=== PATIENT | female | born 1960 | race Caucasian/White ===

== ENCOUNTER 2025-04-11 10:02 | Inpatient (IN) | payer MEDICARE, SELFPAY ==
[2025-04-11] VITALS (7 sets, daily range): BP systolic 123–165; BP diastolic 68–95; PULSE 64–95; RESP 14–18; TEMP 36.6–36.8; O2SAT 97–100; BMI 26.9
--- NOTE | 2025-04-11 10:18 | EX.ED.SAOD ---
HPI History of Present Illness Chief Complaint: Substance Abuse Informant: patient and spouse/S.O. Onset/Context/Timing Onset: - (Years.) Context: Gradual Onset Timing: Continuous Narrative Narrative: 65-year-old female history of atrial flutter on Eliquis. States she has been on hydrocodone 5 times a day for 12 years due to her chronic cough. States that she would like to get off the medication. Is requesting detox. Says when she does not take the medication she goes to withdrawal symptoms. Last dose of the medication was at midnight last night. No prior detox. Prior similar symptoms: Yes Recent Illness/Hospitalization: No [facility] Medical History (Updated 04/11/25 @ 11:11 by Kita Antoine) Atrial flutter HTN (hypertension) Home Medications ?Medication ?Instructions ?Recorded ?Last Taken ?Type apixaban 5 mg tablet (Eliquis) 5 mg PO BID 04/11/25 Unknown History hydrochlorothiazide 25 mg tablet 25 mg PO DAILY 04/11/25 Unknown History metoprolol succinate 50 mg 50 mg PO .morning 04/11/25 Unknown History tablet,extended release 24 hr metoprolol tartrate 25 mg tablet 25 mg PO .evening 04/11/25 Unknown History Allergy/AdvReac Type Severity Reaction Status Date / Time esomeprazole (From Nexium) Allergy Intermediate Itching Verified 04/11/25 10:07 Social History Smoking Status: Never smoker ROS ROS ED ROS Narrative No recent illness. Constitutional Constitutional ED: Denies chills or fever(s) Eyes Eyes: Denies blurry vision ENT ENT ED: Denies ear pain Cardiovascular Cardiovascular: Denies chest pain Respiratory/Chest Respiratory/Chest: Denies cough Gastrointestinal Gastrointestinal: Denies abdominal pain Genitourinary Genitourinary ED: Denies dysuria Musculoskeletal Musculoskeletal: Denies arthralgias Neurologic Neurologic: Denies headache(s) Psychiatric Psychiatric: Denies anxiety or depression Endocrine Endocrinology: Denies cold intolerance Hematologic/Lymphatic Hematologic/Lymphatic: Denies easy bleeding, easy bruising or lymphadenopathy Allergic/Immunologic Allergic/Immunologic ED: Denies mouth swelling, tongue swelling or urticaria EXAM Physical Exam Narrative Exam Narrative: Well-appearing 65-year-old female. Vital signs are stable afebrile. No acute distress. at bedside. H EENT exam pupils round react light. Moist mucous membranes. No trauma. Neck nontender. No lymphadenopathy. Lungs clear to auscultation bilaterally. Heart regular rhythm rate about 80 no murmur. Chest wall and ribs nontender. Abdomen soft nontender. Moving all 4 extremities. Normal strength. Normal range of motion. Nontender no edema. Back nontender. Neurologically she is awake alert. Answering questions and following commands. Very benign exam. Const Vital Signs: 04/11/25 10:02 04/11/25 11:09 04/11/25 11:18 Temperature 97.8 F 98.2 F Temperature Source Temporal Pulse Rate 82 66 68 Respiratory Rate 16 18 18 Blood Pressure 165/88 H 151/75 H 139/71 H Blood Pressure Mean 113 100 93 Pulse Ox 100 98 99 Oxygen Delivery Method Room Air Room Air Positive well nourished and well developed; Negative for cachectic, contractures or unkempt General Appearance ED: well developed and NAD; Negative for unkempt, cachectic, contractures or pallor Nutritional Appearance: Negative for cachectic HEENT Reports moist mucous membranes atraumatic Eyes PERRL and EOMs intact bilaterally Neck no lymphadenopathy, supple and no JVD Lymph Lymphatic: no lymphadenopathy noted Chest Wall inspection of chest normal and palpation of chest normal Resp normal respiratory effort and clear to auscultation bilaterally Cardio regular rate, regular rhythm, S1 normal heart sound, S2 normal heart sound and no murmurs Rate: Negative for bradycardia or tachycardic Rhythm: Negative for abnormal rhythm GI soft to palpation, non-tender, non-distended and no masses Back/Spine no CVA tenderness General Back: Negative for CVA tenderness Cervical Spine: Negative for cervical spine tenderness Thoracic Spine / Upper Back: Negative for thoracic spinal tenderness Neuro oriented x3 and CN's II-XII intact bilaterally Sensorium / Orientation: alert, oriented to person, oriented to place and oriented to time Speech: speech normal Motor Exam: strength 5/5 throughout Psych mental status grossly normal and thought process normal Appearance: Negative for unkempt Attitude: No belligerent, No agitated, No aggressive and No hostile Skin General Skin Exam: Negative for jaundice or pallor Lesions: no lesions Rashes: no rashes MDM MDM MDM Narrative Medical decision making narrative: 65-year-old female has been using 5 hydrocodone a day for 12 years is requesting inpatient detox. Has a benign exam. Screening labs will be obtained and I will speak to the hospitalist about admission. Repeat exam patient is resting comfortably in 50 3 AM. She requested and received 1/2 mg of Ativan for anxiety. Her lab work was unremarkable. Hospitalist is on page for admission for detox. History & Record Review Discussion w/independent historian: Patient and Family Additional record(s) reviewed:: No prior records Lab Data Attestation: I reviewed the patient's lab results. Lab results narrative: CBC unremarkable. White count 8. H&H 15 and 43. Platelets 267. Chemistries show a gap 14. BUN/creatinine is 17 and 0.6. Glucose 125. Liver enzymes are unremarkable. Tox screen positive for opiates. Alcohol negative. Labs: Laboratory Results - last 24 hr 04/11/25 10:40 WBC 8.9 RBC 4.94 Hgb 15.3 H Hct 43.7 MCV 88.5 MCH 31.0 MCHC 35.0 RDW Std Deviation 40.9 RDW Coeff of Amadou 12.4 Plt Count 267 MPV 8.8 Immature Gran % (Auto) 0.300 Neut % (Auto) 62.9 Lymph % (Auto) 30.5 [place] % (Auto) 5.6 Eos % (Auto) 0.4 Baso % (Auto) 0.3 Absolute Neuts (auto) 5.6 Absolute Lymphs (auto) 2.72 Nucleated RBC % 0 Sodium 138 Potassium 4.3 Chloride 101 Carbon Dioxide 23.4 Anion Gap 14 BUN 17 Creatinine 0.67 L Estim Creat Clear Calc 66.04 Est GFR (MDRD) Non-Af 96 BUN/Creatinine Ratio 24.8 H Glucose 125 H Calcium 9.9 Total Bilirubin 0.74 AST 19 ALT 13 Alkaline Phosphatase 59 Total Protein 7.4 Albumin 4.5 Globulin 2.9 Albumin/Globulin Ratio 1.6 Urine Opiates Screen PRESUMPTIVE POSITIVE U Buprenorphine Qual NEGATIVE Ur Oxycodone Screen NEGATIVE Urine Methadone Screen NEGATIVE Urine Fentanyl Screen NEGATIVE Ur Barbiturates Screen NEGATIVE Ur Phencyclidine Scrn NEGATIVE Ur Amphetamines Screen NEGATIVE U Benzodiazepines Scrn NEGATIVE Urine Cocaine Screen NEGATIVE U Cannabinoids Screen NEGATIVE Ethyl Alcohol < 10.1 Discharge Plan Triage Chief Complaint: Substance Abuse ED Provider: Landry Hector Dx/Rx/DC Orders Prescriptions: No Action metoprolol succinate 50 mg tablet extended release 24 hr 50 mg PO .morning Eliquis 5 mg tablet 5 mg PO BID metoprolol tartrate 25 mg tablet 25 mg PO .evening hydrochlorothiazide 25 mg tablet 25 mg PO DAILY Primary Care Provider: UCHE TADEO MD Referrals: Care Physician,No Primary [Non-Staff] - Print Language: Thai
[2025-04-11 10:48] LABS: Hematocrit 43.7 % (37-47); Hemoglobin 15.3 g/dL (12.0-15.0); Immature Granulocytes Count 0.030 X10^3/uL (0.0-0.0); Mean Corp Hgb Conc 35.0 g/dL (32-36); Mean Corpuscular Volume 88.5 fL (81-99); Mean Platelet Vol. 8.8 fl (6.2-12.0); NRBC Flagged by Analyzer 0 % (0-5); Platelet Count 267 K/mm3 (150-450); RBC Distribution Width CV 12.4 % (11.6-14.6); RBC Distribution Width SD 40.9 fl (35.1-43.9); Red Blood Count 4.94 M/mm3 (4.2-5.4); White Blood Count 8.9 K/mm3 (4.4-11.0)
[2025-04-11 11:09] LABS: AST(SGOT) 19 U/L (<=31); Alanine Aminotransfer ALT/SGPT 13 U/L (<=34); Albumin, Serum 4.5 g/dL (3.4-4.8); Alkaline Phosphatase 59 U/L (35-104); Anion Gap 14 (5-15); BUN 17 mg/dL (4-19); BUN/Creat Ratio 24.8 RATIO (10-20); Calcium,Total 9.9 mg/dL (7.6-11.0); Carbon Dioxide 23.4 mmol/L (21.0-32.0); Chloride 101 mmol/L (98-108); Estimated Creatinine Clearance 66.04 ml/min (50-250); Globulin 2.9 g/dL (2.2-4.2); Glucose 125 mg/dL (70-99); Potassium 4.3 mmol/L (3.3-5.1)
[2025-04-11 11:12] LABS: Barbiturate Urine NEGATIVE (< 200 ng/mL); Benzodiazepine Urine NEGATIVE (< 200 ng/mL); PCP Urine NEGATIVE (< 25 ng/mL); THC Urine NEGATIVE (< 50 ng/mL)
[2025-04-11 11:36] LABS: Alcohol, Blood (Medical)-Serum < 10.1 mg/dL (<=10.0)
--- NOTE | 2025-04-11 11:55 | PCM.HP.STD ---
HPI - General General Date of Admission: 04/11/25 Date of Service: 04/11/25 Chief Complaint: acute opioid detox HPI Narrative LIBBY BIANCHI, is a 65 F with a PMH as outlined who presents via the ED on 04/11/2025 for acute opioid detox. SHe has been on hydrocodone 10mg five times daily for 12 years for chronic cough. She says she has been taking more than usual recently and now wants help to detox from the medication. She says her body has gotten used to the hydrocodone over the years and she has been taking her pills when she needs. She recently spent the day with her granddaughters and felt like her brain was very foggy on account of the hydrocodone and so wants help to get off of it. She denied any shakes, tremors, palpitations, nausea, or any other withdrawal symptoms. She did admit to anxiety and restless legs. Review of systems is otherwise negative. Vitals in the ED were BP of 139/71, CO of 68, RR of 18 and temp of 98.2F. She was saturating at 99% on room air. CBC showed Hb of 15.3, wbc of 8.9, platelets of 267. Chemistry was unremarkable and serum alcohol level was <10.1. Urine tox screen is negative. She is being admitted to be managed for acute opioid withdrawal with desire for detox. [facility] Medical History (Updated 04/11/25 @ 15:[address] Swati Sears MD) Atrial flutter HTN (hypertension) Home Medications ?Medication ?Instructions ?Recorded ?Last Taken ?Type apixaban 5 mg tablet (Eliquis) 5 mg PO BID 04/11/25 Unknown History hydrochlorothiazide 25 mg tablet 25 mg PO DAILY 04/11/25 Unknown History metoprolol succinate 25 mg capsule 25 mg PO DAILY BP 04/11/25 Unknown History sprinkle, ext. release 24 hr metoprolol succinate 50 mg 50 mg PO .morning 04/11/25 Unknown History tablet,extended release 24 hr metoprolol tartrate 25 mg tablet 25 mg PO .evening bp 04/11/25 Unknown History Allergy/AdvReac Type Severity Reaction Status Date / Time esomeprazole (From Nexium) Allergy Intermediate Itching Verified 04/11/25 10:07 Social History Smoking Status: Never smoker ROS Constitutional Constitutional: Reports fatigue; Denies anorexia, chills, fever(s), malaise or weakness Eyes Eyes: Denies change in vision ENT HEENT: Denies dysphagia or headache(s) Cardiovascular Cardiovascular: Denies chest pain, dyspnea on exertion, edema, lightheadedness, orthopnea, palpitations, paroxysmal nocturnal dyspnea, rapid heart rate or syncope Respiratory/Chest Respiratory/Chest: Reports cough; Denies dyspnea, productive cough, shortness of breath at rest, shortness of breath with exertion or wheezing Gastrointestinal Gastrointestinal: Denies abdominal pain, constipation, diarrhea, dyspepsia, nausea or vomiting Genitourinary Genitourinary: Denies dysuria Neurologic Neurologic: Denies confusion, dizziness, focal weakness or headache(s) Psychiatric Psychiatric: Denies anxiety or depression Vital Signs Vital Signs Vital Signs: 04/11/25 10:02 04/11/25 11:09 04/11/25 11:18 Temperature 97.8 F 98.2 F Temperature Source Temporal Pulse Rate 82 66 68 Respiratory Rate 16 18 18 Blood Pressure 165/88 H 151/75 H 139/71 H Blood Pressure Mean 113 100 93 Pulse Ox 100 98 99 Oxygen Delivery Method Room Air Room Air Weight Weight: 157 lb Body Mass Index (BMI) 26.9 Physical Exam Const alert, oriented x3 and no apparent distress Constitutional Narrative: anxious General Appearance: cooperative HEENT normocephalic, head/scalp atraumatic, hearing grossly normal bilaterally, moist oral mucous membranes and oropharynx normal Mouth: oral and palatal mucosa normal Eyes EOMs intact bilaterally and conjunctivae normal Neck no lymphadenopathy and supple Resp normal respiratory effort and no retractions Cardio regular rate, regular rhythm, S1 normal heart sound, S2 normal heart sound and no murmurs GI normal to inspection, nondistended, normoactive bowel sounds, soft to palpation and non-tender Extremity normal to inspection, full ROM and no clubbing, cyanosis or edema Neuro oriented x3, moves all extremities and no focal motor deficits Sensorium / Orientation: awake and alert Motor Exam: strength 5/5 throughout Psych affect normal Results Lab / Micro Data 04/11/25 10:40 04/11/25 10:40 Labs: Laboratory Results - last 24 hr 04/11/25 10:40: WBC 8.9, RBC 4.94, Hgb 15.3 H, Hct 43.7, MCV 88.5, MCH 31.0, MCHC 35.0, RDW Std Deviation 40.9, RDW Coeff of Amadou 12.4, Plt Count 267, MPV 8.8, Immature Gran % (Auto) 0.300, Neut % (Auto) 62.9, Lymph % (Auto) 30.5, [place] % (Auto) 5.6, Eos % (Auto) 0.4, Baso % (Auto) 0.3, Absolute Neuts (auto) 5.6, Absolute Lymphs (auto) 2.72, Nucleated RBC % 0, Sodium 138, Potassium 4.3, Chloride 101, Carbon Dioxide 23.4, Anion Gap 14, BUN 17, Creatinine 0.67 L, Estim Creat Clear Calc 66.04, Est GFR (MDRD) Non-Af 96, BUN/Creatinine Ratio 24.8 H, Glucose 125 H, Calcium 9.9, Total Bilirubin 0.74, AST 19, ALT 13, Alkaline Phosphatase 59, Total Protein 7.4, Albumin 4.5, Globulin 2.9, Albumin/Globulin Ratio 1.6, Urine Opiates Screen PRESUMPTIVE POSITIVE, U Buprenorphine Qual NEGATIVE, Ur Oxycodone Screen NEGATIVE, Urine Methadone Screen NEGATIVE, Urine Fentanyl Screen NEGATIVE, Ur Barbiturates Screen NEGATIVE, Ur Phencyclidine Scrn NEGATIVE, Ur Amphetamines Screen NEGATIVE, U Benzodiazepines Scrn NEGATIVE, Urine Cocaine Screen NEGATIVE, U Cannabinoids Screen NEGATIVE, Ethyl Alcohol < 10.1 Assessment & Plan Assessment/Plan (1) Admitted to substance misuse detoxification center: (2) Opioid abuse: PLAN: Plan #Acute opioid use disorder with risk of withdrawal Admit to [facility]. Patient has been on hydrocodone for 12 years for chronic cough. He was initially started on the hydrocodone with cough syrup but says that was making her sleepy so she was switched to the strictly hydrocodone. She now takes 10 mg 5 times daily and has been taking increased doses as her body has gotten used to it. She therefore comes in requesting help for detox. She complains of restless legs and nerves and also has some anxiety. Started on opioid withdrawal protocol with buprenorphine. Adjunctive meds for symptomatic relief. Monitor COWS score. #Hypertension: On hydrochlorothiazide and metoprolol. #History of atrial flutter: On metoprolol and Eliquis DVT prophylaxis: Not indicated as patient already on Eliquis CODE STATUS: full code Patient counseled extensively about different types of CODE STATUS including full code, DNR CCA and DNR CCA. Patient elects to be full code. Total icaj-mr-pjso time 16 minutes. Charges/Coding Visit Charges Inpatient E&M: 77990 Init Hosp L3 Procedures Hospitalists Procedures: 19814 Advncd Care Plan 30 Min
[2025-04-11] MEDS: Metoprolol(XL)Succ 50 MG Tablet PO (21:04)
[2025-04-11] MEDS: APIXABAN 5 MG TABLET PO (21:04)
[2025-04-12 06:33] VITALS: BP 123/77; PULSE 62; RESP 16; TEMP 36.6; O2SAT 99
[2025-04-12 09:04] VITALS: BP 149/77; PULSE 72; RESP 18; TEMP 36.8; O2SAT 98
[2025-04-12 09:07] VITALS: PULSE 72
[2025-04-12] MEDS: APIXABAN 5 MG TABLET PO ×2 (09:07→21:06)
[2025-04-12] MEDS: Metoprolol(XL)Succ 25 MG Tablet PO (09:07)
--- NOTE | 2025-04-12 09:44 | NURSING ---
Call placed to Jim on behalf of patient to request Stevia (sweetener). Left message and call back #.
--- NOTE | 2025-04-12 10:04 | NURSING ---
Call received from Jim regarding sweetener. He will bring some in.
--- NOTE | 2025-04-12 10:30 | PN_ITS ---
Subjective Subjective Patient seen and examined. She says she is feeling better today and says her restless legs and nerves are much better. Review of systems is otherwise negative. Objective Data Objective Data Vital Signs: Vital Signs Temp Pulse Resp BP Pulse Ox O2 Del Method 98.2 F 72 18 149/77 H 98 Room Air 04/12/25 09:04 04/12/25 09:07 04/12/25 09:04 04/12/25 09:04 04/12/25 09:04 04/12/25 09:04 Oxygen Delivery Method Room Air Weight: 156 lb 15.859 oz Body Mass Index (BMI) 26.9 Intake & Output: Intake and Output for Last 24 Hours 04/10/25 04/11/25 04/12/25 23:59 23:59 23:59 Intake Total 500 / 500 Balance 500 / 500 Lab / Micro Data 04/11/25 10:40 04/11/25 10:40 Labs: Laboratory Results - last 24 hr 04/11/25 10:40: WBC 8.9, RBC 4.94, Hgb 15.3 H, Hct 43.7, MCV 88.5, MCH 31.0, MCHC 35.0, RDW Std Deviation 40.9, RDW Coeff of Amadou 12.4, Plt Count 267, MPV 8.8, Immature Gran % (Auto) 0.300, Neut % (Auto) 62.9, Lymph % (Auto) 30.5, [place] % (Auto) 5.6, Eos % (Auto) 0.4, Baso % (Auto) 0.3, Absolute Neuts (auto) 5.6, Absolute Lymphs (auto) 2.72, Nucleated RBC % 0, Sodium 138, Potassium 4.3, Chloride 101, Carbon Dioxide 23.4, Anion Gap 14, BUN 17, Creatinine 0.67 L, Estim Creat Clear Calc 66.04, Est GFR (MDRD) Non-Af 96, BUN/Creatinine Ratio 24.8 H, Glucose 125 H, Calcium 9.9, Total Bilirubin 0.74, AST 19, ALT 13, Alkaline Phosphatase 59, Total Protein 7.4, Albumin 4.5, Globulin 2.9, Albumin/Globulin Ratio 1.6, Urine Opiates Screen PRESUMPTIVE POSITIVE, U Buprenorphine Qual NEGATIVE, Ur Oxycodone Screen NEGATIVE, Urine Methadone Screen NEGATIVE, Urine Fentanyl Screen NEGATIVE, Ur Barbiturates Screen NEGATIVE, Ur Phencyclidine Scrn NEGATIVE, Ur Amphetamines Screen NEGATIVE, U Benzodiazepines Scrn NEGATIVE, Urine Cocaine Screen NEGATIVE, U Cannabinoids Screen NEGATIVE, Ethyl Alcohol < 10.1 Physical Exam Const alert, oriented x3 and no apparent distress Constitutional Narrative: anxious General Appearance: cooperative HEENT normocephalic, head/scalp atraumatic, hearing grossly normal bilaterally, moist oral mucous membranes and oropharynx normal Eyes EOMs intact bilaterally and conjunctivae normal Neck no lymphadenopathy and supple Resp normal respiratory effort, normal air movement and no retractions Cardio regular rate, regular rhythm, S1 normal heart sound, S2 normal heart sound and no murmurs GI normal to inspection, nondistended, normoactive bowel sounds, soft to palpation and non-tender Extremity normal to inspection, full ROM, normal capillary refill and no clubbing, cyanosis or edema General Extremity: no tenderness to palpation of joints or extremities Skin General Skin Exam: no breakdown Neuro oriented x3, CN's II-XII intact bilaterally, moves all extremities and no focal motor deficits Sensorium / Orientation: awake and alert Motor Exam: strength 5/5 throughout and general weakness Psych thought process normal, cooperative and affect normal Appearance: appropriate Assessment & Plan Assessment/Plan (1) Admitted to substance misuse detoxification center: (2) Opioid abuse: PLAN: Plan #Acute opioid use disorder with risk of withdrawal * Patient has been on hydrocodone for 12 years for chronic cough. * She was initially started on the hydrocodone with cough syrup but says that was making her sleepy so she was switched to the strictly hydrocodone. * She now takes 10 mg 5 times daily and has been taking increased doses as her body has gotten used to it. * She therefore comes in requesting help for detox. She complains of restless legs and nerves and also has some anxiety. * on opioid withdrawal protocol with buprenorphine * adjunctive meds for symptomatic relief. Monitor COWS score. * #Hypertension: On hydrochlorothiazide and metoprolol. #History of atrial flutter: On metoprolol and Eliquis DVT prophylaxis: Not indicated as patient already on Eliquis CODE STATUS: full code * Charges/Coding Visit Charges Inpatient E&M: 47921 Subs Hosp L2
--- NOTE | 2025-04-12 11:59 | ADDICTION ---
Met with patient to complete RAMP assessments. Pt has a dependence to hydrocodone. She has been prescribed it for 12 years now and would like to no longer need it. She reports its for chronic anticoagulation. Pt would like to find something non-narcotic to help with the cough. Spoke with Dr. Mcelroy and she will stop up and talk to her if she has the availability. Dr. Mcelroy did say that if its dependent specific, sending her home with some comfort meds to finish any w/d symptoms may be helpful. Clinician allowed pt to use her for for the rest of her nurse, Katrin's, shift. Katrin will lock it back up once her shift is up.
--- NOTE | 2025-04-12 13:35 | CHAPLAIN ---
Type of Pastoral Visit _x__ Initial Visit ___ Follow-up Visit ___ On-call Visit ___ General Patient Visit ___ Spiritual Assessment ___ Family Conference ___ Bereavement ___ Rapid Response ___ Code Blue ___ Other (describe below) Pastoral Care Referral From _x__ Patient ___ Family _x__ Nurse ___ Physician ___ Paid Search Marketing Analyst ___ Manager Membership ___ Other (describe below) Sacrament/Intervention _x__ Active listening ___ Anointing ___ Hoahaoism ___ Bereavement ___ Communion _x__ Caridad exploration ___ ___ Life review ___ Prayer ___ Reconciliation ___ Sacrament of Sick _x__ Supportive presence ___ Wedding ___ Other (describe below) Pastoral Comments patient had requested a visit and a Bible; made two previous attempts to see patient who was being seen by staff members; on third attempt the STUDIO CAMERA OPERATOR was just leaving room and patient was walking in the room; pt had already received a Bible and had been reading it; pt says that her requests had been answered, that everyone has been very kind to her, that she was not as anxious as she had been before, was ready to eat lunch, and denied any urgent concerns; pt did eagerly accept a prayer for her help today; pt denies further need
[2025-04-12 14:24] VITALS: BP 132/67; PULSE 63; RESP 16; TEMP 36.1; O2SAT 95
[2025-04-12 20:54] VITALS: BP 158/88; PULSE 69; RESP 16; TEMP 36.4; O2SAT 97
[2025-04-12 21:05] VITALS: BP 158/88; PULSE 69
[2025-04-12] MEDS: Metoprolol(XL)Succ 50 MG Tablet PO (21:05)
[2025-04-12] MEDS: 0.9% Saline Lock 10 ML Syringe IV (23:09)
[2025-04-13 05:48] VITALS: BP 106/64; PULSE 67; RESP 18; TEMP 36.5; O2SAT 95
[2025-04-13 09:02] VITALS: PULSE 72
[2025-04-13] MEDS: Metoprolol(XL)Succ 25 MG Tablet PO (09:02)
[2025-04-13] MEDS: APIXABAN 5 MG TABLET PO ×2 (09:02→20:58)
[2025-04-13 09:56] VITALS: BP 152/79; PULSE 72; RESP 16; TEMP 36.9; O2SAT 95
--- NOTE | 2025-04-13 10:54 | PN_ITS ---
Subjective Subjective Patient seen and examined with her nurse by her bedside. She had no active complaints. She says she was seen by the RAMP coordinator and initially told she could follow up with them on outpatient basis and told the different kinds of medications she could get. However she says subsequently the room coordinator came back and told her she has begun to Dr. Mcelroy and they did not think she needed to follow-up. Patient is very upset about this and tearful and says she does not know how she is going to survive if she sent home without any medication. I explained to her that the practice was usually not to send patients home with medications after they went to the acute detox and for them to follow-up at 180. Patient counseled that we will get the RAMP coordinator to come back to speak to her again to further clarify issues. Objective Data Objective Data Vital Signs: Vital Signs Temp Pulse Resp BP Pulse Ox O2 Del Method 98.5 F 72 16 152/79 H 95 Room Air 04/13/25 09:56 04/13/25 09:56 04/13/25 09:56 04/13/25 09:56 04/13/25 09:56 04/13/25 09:56 Oxygen Delivery Method Room Air Weight: 156 lb 15.506 oz Body Mass Index (BMI) 26.9 Intake & Output: Intake and Output for Last 24 Hours 04/11/25 04/12/25 04/13/25 23:59 23:59 23:59 Intake Total 500 / 500 1000 / 1350 675 / 675 Balance 500 / 500 1000 / 1350 675 / 675 Lab / Micro Data 04/11/25 10:40 04/11/25 10:40 Physical Exam Const alert, oriented x3 and no apparent distress Constitutional Narrative: anxious General Appearance: cooperative HEENT normocephalic, head/scalp atraumatic, hearing grossly normal bilaterally, moist oral mucous membranes and oropharynx normal Eyes EOMs intact bilaterally and conjunctivae normal Neck no lymphadenopathy and supple Resp normal respiratory effort, normal air movement and no retractions Cardio regular rate, regular rhythm, S1 normal heart sound, S2 normal heart sound and no murmurs GI normal to inspection, nondistended, normoactive bowel sounds, soft to palpation and non-tender Extremity normal to inspection, full ROM, normal capillary refill and no clubbing, cyanosis or edema General Extremity: no tenderness to palpation of joints or extremities Skin General Skin Exam: no breakdown Neuro oriented x3, CN's II-XII intact bilaterally, moves all extremities and no focal motor deficits Sensorium / Orientation: awake and alert Motor Exam: strength 5/5 throughout and general weakness Psych thought process normal, cooperative and affect normal Appearance: appropriate Assessment & Plan Assessment/Plan (1) Admitted to substance misuse detoxification center: (2) Opioid abuse: PLAN: Plan #Acute opioid use disorder with risk of withdrawal * Patient has been on hydrocodone for 12 years for chronic cough. * She was initially started on the hydrocodone with cough syrup but says that was making her sleepy so she was switched to the strictly hydrocodone. * She now takes 10 mg 5 times daily and has been taking increased doses as her body has gotten used to it. * on opioid withdrawal protocol with buprenorphine * adjunctive meds for symptomatic relief. * #Hypertension: On hydrochlorothiazide and metoprolol. #History of atrial flutter: On metoprolol and Eliquis DVT prophylaxis: Not indicated as patient already on Eliquis CODE STATUS: full code * Charges/Coding Visit Charges Inpatient E&M: 89932 Subs Hosp L2
[2025-04-13] MEDS: hydrOXYzine PAM 25 MG Capsule 50 MG PO ×2 (11:21→21:12)
[2025-04-13 14:58] VITALS: BP 134/81; PULSE 84; RESP 17; TEMP 36.8; O2SAT 95
[2025-04-13 20:58] VITALS: PULSE 71
[2025-04-13] MEDS: Metoprolol(XL)Succ 50 MG Tablet PO (20:58)
[2025-04-13 21:21] VITALS: BP 132/71; PULSE 71; RESP 16; TEMP 36.1; O2SAT 98
[2025-04-14 03:13] VITALS: BP 118/48; PULSE 64; RESP 16; TEMP 36.3; O2SAT 98
[2025-04-14 09:05] VITALS: PULSE 64
[2025-04-14] MEDS: Metoprolol(XL)Succ 25 MG Tablet PO (09:05)
[2025-04-14] MEDS: hydrOXYzine PAM 25 MG Capsule 50 MG PO (09:05)
[2025-04-14] MEDS: APIXABAN 5 MG TABLET PO (09:06)
[2025-04-14 09:18] VITALS: BP 157/77; PULSE 64; RESP 16; TEMP 36.6; O2SAT 95
--- NOTE | 2025-04-14 09:57 | DS.PCM_ITS ---
Providers Date of Admission: 04/11/25 Date of Discharge: 04/14/25 Primary Care Physician: UCHE TADEO Reason For Visit: ACUTE OPIOID WITHDRAWAL Diagnosis Discharge Diagnosis (1) Admitted to substance misuse detoxification center: Status: Acute Code(s): Z78.9 - Other specified health status (2) Opioid abuse: Status: Acute Code(s): F11.10 - Opioid abuse, uncomplicated Plan #Acute opioid use disorder with risk of withdrawal * Patient has been on hydrocodone for 12 years for chronic cough. * She was initially started on the hydrocodone with cough syrup but says that was making her sleepy so she was switched to the strictly hydrocodone. * She now takes 10 mg 5 times daily and has been taking increased doses as her body has gotten used to it. * on opioid withdrawal protocol with buprenorphine * adjunctive meds for symptomatic relief. * #Hypertension: On hydrochlorothiazide and metoprolol. #History of atrial flutter: On metoprolol and Eliquis DVT prophylaxis: Not indicated as patient already on Eliquis CODE STATUS: full code * Medications at Discharge Home Medications apixaban 5 mg tablet (Eliquis) 5 mg PO BID 04/11/25 hydrochlorothiazide 25 mg tablet 25 mg PO DAILY 04/11/25 metoprolol succinate 50 mg tablet,extended release 24 hr 50 mg PO .morning 04/11/25 metoprolol tartrate 25 mg tablet 25 mg PO .evening bp 04/11/25 hydroxyzine pamoate 25 mg capsule 25 mg PO TID PRN anxiety #10 caps 04/14/25 ondansetron 4 mg disintegrating tablet 4 mg PO Q8H PRN nausea and vomiting #20 tabs 04/14/25 Hospital Course Operations None Procedures None Summary of Care Provided Minutes Spent on Discharge: 45 Hospital Course: LIBBY BIANCHI, is a 65 F with a PMH as outlined who presents via the ED on 04/11/2025 for acute opioid detox. SHe has been on hydrocodone 10mg five times daily for 12 years for chronic cough. She says she has been taking more than usual recently and now wants help to detox from the medication. She says her body has gotten used to the hydrocodone over the years and she has been taking her pills when she needs. She recently spent the day with her granddaughters and felt like her brain was very foggy on account of the hydrocodone and so wants help to get off of it. She denied any shakes, tremors, palpitations, nausea, or any other withdrawal symptoms. She did admit to anxiety and restless legs. Review of systems is otherwise negative. Vitals in the ED were BP of 139/71, NC of 68, RR of 18 and temp of 98.2F. She was saturating at 99% on room air. CBC showed Hb of 15.3, wbc of 8.9, platelets of 267. Chemistry was unremarkable and serum alcohol level was <10.1. Urine tox screen is negative. She was admitted to be managed for acute opioid withdrawal with desire for detox. She was started on opioid withdrawal protocol with buprenorphine. She tolerated a 3-day detox protocol. Patient that she would be sent home on further withdrawal medications but was counseled that this was not the usual practice. She was evaluated by addiction medicine who recommended that she follow-up at [facility] in [place] which was nearer to patient's home for further outpatient care for opioid use disorder. On discharge she was given a prescription for p.o. Vistaril and p.o. Zofran per her request to help with anxiety until she is able to follow-up with trash collector. Patient was discharged on 04/14/2025. She is follow-up with her primary care doctor within 1 to 2 weeks. Patient seen and examined prior to discharge. She had no active complaints and had an uneventful night. She was a bit anxious about the fact that she was not being given any withdrawal meds to go home with. Vitals reviewed. All medications reviewed and reconciled. Physical Exam Const alert, oriented x3 and no apparent distress Constitutional Narrative: anxious General Appearance: cooperative and comfortable Orientation / Consciousness: awake HEENT normocephalic, head/scalp atraumatic, hearing grossly normal bilaterally, moist oral mucous membranes and oropharynx normal Mouth: oral and palatal mucosa normal Eyes EOMs intact bilaterally and conjunctivae normal Neck no lymphadenopathy and supple Resp normal respiratory effort, normal air movement and no retractions Cardio regular rate, regular rhythm, S1 normal heart sound, S2 normal heart sound and no murmurs GI normal to inspection, nondistended, normoactive bowel sounds, soft to palpation and non-tender Extremity normal to inspection, full ROM, normal capillary refill and no clubbing, cyanosis or edema General Extremity: no tenderness to palpation of joints or extremities Skin General Skin Exam: no breakdown Neuro oriented x3, CN's II-XII intact bilaterally, moves all extremities and no focal motor deficits Sensorium / Orientation: awake and alert Motor Exam: strength 5/5 throughout and general weakness Psych thought process normal, cooperative and affect normal Appearance: appropriate Weight / BMI Weight Weight: 156 lb 15.506 oz Body Mass Index (BMI) 26.9 ABG / Lab / Microbiology Data 04/11/25 10:40 04/11/25 10:40 D/C Instructions Discharge Activity: Return to Normal Activity Weight Bearing Status: Weight bearing as tolerated Call your doctor if you observe: Fever of 101 or Higher, Shortness of breath, Dizziness, Swelling in the ankles, Chest pain and Increased palpitations (irregular heartbeat) DC O2, CPAP, BIPAP Needs Home O2 Discharge instructions: No Meaningful Use Info Meaningful Use Meaningful Use Diagnoses (Choose all that apply): None applicable Discharge Plan Admission Admit Date/Time: 04/11/25 12:03 Primary Reason for Your Visit: acute opioid withdrawal Attending Provider: Swati Sears Primary Care Provider: UCHE TADEO MD Instructions Patient Instructions: ED Opioid Withdrawal Additional Instructions / Restrictions: Please call [facility] on Wednesday04/16/2025 to set up outpatient appointment for rehab from opioids Discharge Orders/Prescriptions Prescriptions: New hydroxyzine pamoate 25 mg capsule 25 mg PO TID PRN (Reason: anxiety) Qty: 10 0RF ondansetron 4 mg tablet,disintegrating 4 mg PO Q8H PRN (Reason: nausea and vomiting) Qty: 20 0RF Continued metoprolol succinate 50 mg tablet extended release 24 hr 50 mg PO .morning Eliquis 5 mg tablet 5 mg PO BID metoprolol tartrate 25 mg tablet 25 mg PO .evening hydrochlorothiazide 25 mg tablet 25 mg PO DAILY Discontinued metoprolol succinate 25 mg capsule,sprinkle,ER 24hr 25 mg PO DAILY Referrals / Follow Up: UCHE TADEO MD [Other] - Within 1 Week Care Physician,No Primary [Non-Staff] - Disposition Disposition (needs filled in before D/C Order can be placed): Home, Self Care Charges/Coding Visit Charges Inpatient E&M: [id number] Disch Hosp >30min
--- NOTE | 2025-04-14 09:57 | PCM.DC ---
Discharge Instructions DC O2, CPAP, BIPAP needs Home O2 Discharge instructions: No Dressing / Incision Discharge Activity: Return to Normal Activity Weight Bearing Status: Weight bearing as tolerated Dressing / Incision Call your doctor if you observe: Fever of 101 or Higher, Shortness of breath, Dizziness, Swelling in the ankles, Chest pain and Increased palpitations (irregular heartbeat) Follow Up Care Test Results: Test results from this visit will be discussed in further detail at your follow-up appointment, if applicable. Discharge Plan Admission Admit Date/Time: 04/11/25 12:03 Primary Reason for Your Visit: acute opioid withdrawal Attending Provider: Swati Sears Primary Care Provider: UCHE TADEO MD Instructions Patient Instructions: ED Opioid Withdrawal Additional Instructions / Restrictions: Please call [facility] on Wednesday04/16/2025 to set up outpatient appointment for rehab from opioids Discharge Orders/Prescriptions Prescriptions: Continued metoprolol succinate 50 mg tablet extended release 24 hr 50 mg PO .morning Eliquis 5 mg tablet 5 mg PO BID metoprolol tartrate 25 mg tablet 25 mg PO .evening hydrochlorothiazide 25 mg tablet 25 mg PO DAILY Discontinued metoprolol succinate 25 mg capsule,sprinkle,ER 24hr 25 mg PO DAILY Referrals / Follow Up: UCHE TADEO MD [Other] - Within 1 Week Care Physician,No Primary [Non-Staff] - Disposition Disposition (needs filled in before D/C Order can be placed): Home, Self Care
== END 2025-04-14 14:15 | disposition home or self-care (01) | DRG 897 ==
LOC: ED 11:54 → MS3 12:15
PROVIDERS: Admitting Provider Student in an Organized Health Care Education/Training Program; Emergency Provider Emergency Medicine; Visit Provider Student in an Organized Health Care Education/Training Program
DX: F11.13 Opioid abuse with withdrawal (principal); I48.92 Unspecified atrial flutter; I10 Essential (primary) hypertension; Z79.899 Other long term (current) drug therapy; Z79.01 Long term (current) use of anticoagulants
CPT/HCPCS: 80053; 80307; 82077; 85025; 99283; A4216